=== PATIENT | female | born 1970 | race Caucasian/White ===

== ENCOUNTER 2018-11-27 14:05 | Inpatient (IN) | payer MEDICAID ==
[~2018-11-27] VITALS: Ht 154.9 cm; Wt 61.2 kg
[~2018-11-27 14:05] MED LIST: ARIP20TA PO; BENZ1TAB70 PO; CITA10TA68 PO; DIVA-78 PO
[2018-11-27] MEDS ORDERED: DIPH25 PO (16:08)
[2018-11-27] MEDS ORDERED: CITA-106 PO (16:08)
[2018-11-27] MEDS ORDERED: RISP4 PO (16:08)
[2018-11-27] MEDS ORDERED: HALOPERIDOL 5 MG TABLET PO PRN (17:00)
[2018-11-27] MEDS ORDERED: LORazepam 2 MG TABLET PO PRN (17:00)
[2018-11-27] MEDS ORDERED: ZOLPIDEM TARTRATE 10 MG TABLET PO PRN (17:00)
[2018-11-27 17:38] VITALS: BP 100/72
[2018-11-27] MEDS ORDERED: ACETAMINOPHEN 325 MG TABLET PO PRN (18:45)
[2018-11-27] MEDS ORDERED: IBUPROFEN 400 MG TABLET PO PRN (18:45)
[2018-11-27] MEDS ORDERED: DOCUSATE SODIUM 100 MG CAPSULE PO PRN (18:45)
[2018-11-27] MEDS ORDERED: GuaiFENesin/D-METHORPHAN [SUGAR-FREE] 200-20MG/10 ML SYRUP UDCUP PO PRN (18:45)
[2018-11-27] MEDS ORDERED: ONDANSETRON HCL 4 MG TABLET PO PRN (18:45)
[2018-11-27] MEDS ORDERED: CloNIDine HCL 0.1 MG TABLET PO PRN (18:45)
[2018-11-27] MEDS ORDERED: NICOTINE 14 MG/24 HOUR PATCH TD PRN (18:45)
[2018-11-27] MEDS ORDERED: MAGNESIUM HYDROXIDE SUSPENSION 30 ML UDCUP PO PRN (18:45)
[2018-11-27] MEDS ORDERED: MAG HYDROX/AL HYDROX/SIMETH ES 30 ML SUSPENSION UDCUP PO PRN (18:45)
[2018-11-27] MEDS ORDERED: ALBUTEROL SULFATE HFA 90 MCG/PUFF 8 GM INHALER IH PRN (18:45)
[2018-11-27] MEDS ORDERED: PETROLATUM,WHITE 28 GM JELLY TP PRN (18:45)
[2018-11-27] MEDS ORDERED: LOPERAMIDE HCL 2 MG CAPSULE PO PRN (18:45)
[2018-11-28 06:11] VITALS: BP 102/67
[2018-11-28 08:06] LABS: BASOPHILS % (AUTO) 0.8 % (0.0-2.0); EOSINOPHILS % (AUTO) 3.5 % (1.0-6.0); HEMATOCRIT 39.3 % (36-46); HEMOGLOBIN 13.1 g/dL (12.0-16.0); LYMPHOCYTES % (AUTO) 25.2 % (22.0-44.0); MEAN CORPUSCULAR HEMOGLOBIN 31.8 pg (26.0-34.0); MEAN CORPUSCULAR HGB CONC 33.4 G/dL (31.0-37.0); MEAN CORPUSCULAR VOLUME 95 fL (80-100); MONOCYTES # (AUTO) 0.6 K/uL (0.1-1.0); MONOCYTES % (AUTO) 7.6 % (2.0-9.0); NEUTROPHILS % (AUTO) 62.9 % (40.0-70.0); PLATELET COUNT (AUTO) 167 K/uL (150-450); RED BLOOD CELL COUNT(AUTO) 4.13 MIL/uL (4.00-5.20); RED CELL DISTRIBUTION WIDTH 13.1 % (11.5-14.5)
[2018-11-28 08:15] LABS: HEMOGLOBIN A1C 5.6 % (4.5-6.2)
[2018-11-28 08:25] VITALS: BP 101/70
[2018-11-28 08:33] LABS: ALANINE AMINOTRANSFERASE 7 U/L (12-78); ALKALINE PHOSPHATASE 64 U/L (46-116); ANION GAP 10 mmol/L (8-16); ASPARTATE AMINOTRANSFERASE 11 U/L (15-37); BILIRUBIN,TOTAL 0.3 mg/dL (0.1-1.0); CALCIUM, TOTAL 8.7 mg/dL (8.8-10.5); CARBON DIOXIDE 25 mmol/L (22-29); CHLORIDE 104 mmol/L (98-107); CHOL/HDL RATIO 6.1 (3.9-5.7); CHOLESTEROL 177 mg/dL (131-200); FREE T4 (FREE THYROXINE) 0.97 ng/dL (0.76-1.46); GLOMERULAR FILTR. RATE CALC > 60 mL/min (>60); GLUCOSE,RANDOM 97 mg/dL (70-110); HDL CHOLESTEROL 29 mg/dL (40-60); POTASSIUM 3.8 mmol/L (3.5-5.1); SODIUM SERUM 139 mmol/L (136-145); TRIGLYCERIDES 656 mg/dL (15-150); UREA NITROGEN, BLOOD 11 mg/dL (7-18)
[2018-11-28] MEDS: CITALOPRAM HYDROBROMIDE 20 MG TABLET PO SCH (13:00)
[2018-11-28 16:12] VITALS: BP 104/72
[2018-11-28] MEDS: RisperiDONE 4 MG TABLET PO SCH (20:38)
[2018-11-29 04:43] VITALS: BP 105/70
[2018-11-29 08:46] VITALS: BP 102/63
[2018-11-29] MEDS: RisperiDONE 2 MG TABLET PO SCH (09:14)
[2018-11-29] MEDS: CITALOPRAM HYDROBROMIDE 20 MG TABLET PO SCH (09:15)
[2018-11-29] MEDS: SIMVASTATIN 10 MG TABLET PO SCH (10:14)
[2018-11-29] MEDS: RisperiDONE 4 MG TABLET PO SCH (20:12)
[2018-11-30 05:30] VITALS: BP 118/70
[2018-11-30 08:00] VITALS: BP 120/72
[2018-11-30] MEDS: CITALOPRAM HYDROBROMIDE 20 MG TABLET PO SCH (08:47)
[2018-11-30] MEDS: RisperiDONE 2 MG TABLET PO SCH (08:47)
[2018-11-30] MEDS: SIMVASTATIN 10 MG TABLET PO SCH (08:47)
[2018-11-30 16:08] VITALS: BP 108/75
[2018-11-30] MEDS: RisperiDONE 4 MG TABLET PO SCH (20:25)
[2018-12-01 06:58] VITALS: BP 110/72
[2018-12-01 08:12] VITALS: BP 100/68
[2018-12-01] MEDS: SIMVASTATIN 10 MG TABLET PO SCH (09:17)
[2018-12-01] MEDS: CITALOPRAM HYDROBROMIDE 20 MG TABLET PO SCH (09:18)
[2018-12-01] MEDS: RisperiDONE 2 MG TABLET PO SCH (09:19)
[2018-12-01 16:25] VITALS: BP 100/67
[2018-12-01] MEDS: RisperiDONE 4 MG TABLET PO SCH (20:17)
[2018-12-02 06:42] VITALS: BP 102/70
[2018-12-02 08:26] VITALS: BP 90/60
[2018-12-02] MEDS: CITALOPRAM HYDROBROMIDE 20 MG TABLET PO SCH (08:42)
[2018-12-02] MEDS: RisperiDONE 2 MG TABLET PO SCH (08:43)
[2018-12-02] MEDS: SIMVASTATIN 10 MG TABLET PO SCH (08:43)
[2018-12-02] MEDS ORDERED: CITA-106 PO (11:31)
[2018-12-02] MEDS ORDERED: RISP2 PO (11:47)
[2018-12-02] MEDS ORDERED: SIMV-259 PO (11:49)
== END 2018-12-02 14:10 | disposition home or self-care (01) | DRG 750 ==
LOC: B3A 17:03
PROVIDERS: ADMIT Psychiatry & Neurology Psychiatry; ATTEND Psychiatry & Neurology Psychiatry
DX: F25.1 Schizoaffective disorder, depressive type (principal); R45.851 Suicidal ideations; Z91.19 Patient's noncompliance with other medical treatment and regimen; E78.5 Hyperlipidemia, unspecified; F10.10 Alcohol abuse, uncomplicated; F41.9 Anxiety disorder, unspecified; F19.10 Other psychoactive substance abuse, uncomplicated; Z71.41 Alcohol abuse counseling and surveillance of alcoholic; Z91.5 Personal history of self-harm; Z71.51 Drug abuse counseling and surveillance of drug abuser
CPT/HCPCS: 83036; 84439; 84443